=== PATIENT | male | born 1990 | race Caucasian/White ===

== ENCOUNTER 2022-02-15 10:22 | Emergency (ER) | payer OTHER, SELFPAY ==
--- NOTE | ~2022-02-15 | XR_ITS ---
EXAMINATION: XR chest 2V DATE: 02/15/2022 10:46 INDICATION: Cough and fever TECHNIQUE: PA and lateral views of the chest are obtained. COMPARISON: None available FINDINGS: There are minimal airspace opacities of the lower lung zones. No pleural effusion or pneumo thorax. The cardiomediastinal silhouette is normal. There is mild thoracic spondylosis. IMPRESSION: 1. Minimal airspace opacities of the lower lung zones, consistent with atelectasis versus pneumonia. Reviewed, dictated and finalized at location B. IMPRESSION: 1. Minimal airspace opacities of the lower lung zones, consistent with atelecta sis versus pneumonia.
[2022-02-15 10:25] VITALS: BP 135/87; PULSE 118; RESP 18; TEMP 37.1; O2SAT 100
--- NOTE | 2022-02-15 10:25 | ED.URI ---
HPI - URI/Sore Throat General Chief Complaint: Upper Respiratory Infection Stated Complaint: fever,cough Time Seen by Provider: 02/15/22 10:32 Source: patient, RN notes reviewed and old records reviewed Mode of arrival: ambulatory Limitations: no limitations History of Present Illness HPI Narrative: 31-year-old male presents to the [facility] with complaints of fever and cough for the last 2 to 3 days. Patient states that he took Advil just prior to arrival. Reports yesterday he got home from work with 102 fever. Reports taking an at home COVID test which he reports is negative MD elicited complaint: fever and cough Onset (ago): day(s) (2-3 ) Able to tolerate fluids by mouth: Yes Relieving factors: NSAID (for fever) Related Data Allergies Allergy/AdvReac Type Severity Reaction Status Date / Time Penicillins Allergy Mild Rash Verified 02/15/22 10:24 Sulfa (Sulfonamide Allergy Mild Rash Verified 02/15/22 10:24 Antibiotics) Review of Systems Review of Systems: All systems reviewed & are unremarkable except as noted in HPI and below Constitutional: Constitutional: Reports as per HPI, Denies chills and Reports fever(s) Eyes: Eyes: Reports no additional eye complaints ENT: Reports system reviewed and no additional complaints, except as documented Cardiovascular: Cardiovascular: Reports no additional cardiovascular complaints Respiratory: Respiratory: Reports as per HPI and Reports cough Gastrointestinal: Gastrointestinal: Reports no additional gastrointestinal complaints Musculoskeletal: Musculoskeletal: Reports no additional musculoskeletal complaints Integumentary/Breasts: Skin/Breast: Reports system reviewed and no additional complaints, except as docu Neurologic: Reports system reviewed and no additional complaints, except as documented Psychiatric: Psychiatric: Reports no additional psychiatric complaints Allergic/Immunologic: Allergic/Immunologic: Reports no additional allergic/immunologic complaints [facility] Past Medical History Medical History Broken humerus 2007 Peritonsillar abscess 2017 Pilonidal cyst 2014 Sinus problem Surgical History Surgical History History of surgery on arm humerus - 2006 History of total cystectomy Pilaidal cyst - 2013 [place] teeth extracted 2013 Family History Family History Father Diabetes mellitus Hypertension COPD (chronic obstructive pulmonary disease) Mother Hypertension Grandparent Cancer Social History Social History Smoking packs per day: 1 Smoking cigarettes per day: 20.0 Years smoked: 10 Smoking pack-years: 10.00 Smoking status: Current every day smoker Tobacco type: cigarettes Additional smoking assessment comments: 1 pack daily - started 2009 Alcohol intake: current Drinks per week: 1 Alcohol use details: 1 beer consumed weekly Substance use: never Substance use type: does not use 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 There is no relevant family history pertinent to the patient complaint. Exam Const: General: healthy appearing, no acute distress and alert Nutritional Appearance: well nourished Orientation/consciousness: patient oriented x3 Limitations: no limitations HENMT: Head: normal to inspection Ears: external ears normal General nose exam: Normal external nose present Face and sinus: normal facial exam Mouth: Yes Normal oral and palatal mucosa present Eyes: General: appearance normal, both eyes and all related structures Pupils: Equal, round and marley
[2022-02-15 21:31] LABS: SARS-CoV-2 RNA PCR Negative
== END 2022-02-15 11:05 | disposition home or self-care (01) ==
PROVIDERS: Emergency Provider Nurse Practitioner; PCP Family Medicine
DX: J18.9 Pneumonia, unspecified organism (principal); F17.210 Nicotine dependence, cigarettes, uncomplicated; Z20.822 Contact with and (suspected) exposure to COVID-19
CPT/HCPCS: 71046; 87081; 87804; 87880; 99213; C9803; G0463; U0003; U0005

== ENCOUNTER 2024-02-03 18:18 | Emergency (ER) | payer BC, SELFPAY ==
[2024-02-03 18:25] VITALS: BP 149/96; PULSE 110; RESP 16; TEMP 36.5; O2SAT 99
--- NOTE | 2024-02-03 18:32 | ED.GENADULT ---
HPI - General Adult General Chief complaint: Wound/Laceration Stated complaint: wound laceration rt index finger Time Seen by Provider: 02/03/24 18:32 Source: patient Mode of arrival: ambulatory Limitations: no limitations History of Present Illness HPI narrative: 33-year-old male patient presents to the [facility] with complaints of a laceration to the right index finger. Patient states he was working with some wood working tools and lacerated his finger with a sharp areas of the tool. Patient states last tetanus shot was about 2 years ago. Related Data Allergies Allergy/AdvReac Type Severity Reaction Status Date / Time Penicillins AdvReac Mild Rash Verified 02/03/24 18:21 Sulfa (Sulfonamide AdvReac Mild Rash Verified 02/03/24 18:21 Antibiotics) Review of Systems Review of Systems: CONSTITUTIONAL: Denies fever, chills, or sweats. EYES: Denies visual changes, redness, or discharge. ENT: Denies rhinorrhea, congestion, sore throat, or otalgia. CARDIOVASCULAR: Denies chest pain, palpitations, or edema. RESPIRATORY: Denies cough or dyspnea. GASTROINTESTINAL: Denies abdominal pain, nausea, vomiting, or diarrhea. GENITOURINARY: Denies dysuria or hematuria. SKIN: Denies rash or itching. Positive laceration to right ringfinger MUSCULOSKELETAL: Denies back pain, joint pain, or myalgia. NEUROLOGIC: Denies headache, numbness, or weakness. PSYCHIATRIC: Denies anxiety or depression. [facility] Past Medical History Medical History Broken humerus 2007 Peritonsillar abscess 2017 Pilonidal cyst 2014 Sinus problem Surgical History Surgical History History of surgery on arm humerus - 2006 History of total cystectomy Pilaidal cyst - 2014 [place] teeth extracted 2012 Family History Family History Father Diabetes mellitus Hypertension COPD (chronic obstructive pulmonary disease) Mother Hypertension Grandparent Cancer Social History Social History Smoking packs per day: 1 Smoking cigarettes per day: 20.0 Years smoked: 10 Smoking pack-years: 10.00 Smoking status: Current every day smoker Tobacco type: cigarettes Additional smoking assessment comments: 1 pack daily - started 2009 Alcohol intake: current Drinks per week: 1 Alcohol use details: 1 beer consumed weekly Substance use: never Substance use type: does not use Living arrangements: with family Occupation/Education: occupation 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 There is no relevant family history pertinent to the presenting complaint. Exam Narrative: GENERAL: Well-appearing, well-nourished, and in no acute distress. HEAD: Normocephalic, atraumatic. EYES: PERRLA and EOMI. ENT: Nares clear, no rhinorrhea or epistaxis. Mucous membranes moist. NECK: Supple. No lymphadenopathy CHEST: Clear to auscultation. No respiratory distress. HEART: Regular rate and rhythm. No murmur heard. Normal peripheral pulses. ABDOMEN: Soft, nontender, nondistended, normal active bowel sounds. EXTREMITIES: Normal range of motion. No edema. SKIN: Warm, dry, no rash. patient has proximally 2 cm laceration noted to the palm side of the 4th digit between PIP and PIP joint. Laceration is slightly gaping but no fat exposed NEURO: No focal deficits. Alert and oriented x3. Course Course Level of Care: Express Care Visit Vital Signs Vital signs: Vital Signs Temperature 36.5 C 02/03/24 18:25 Pulse Rate 110 H 02/03/24 18:25 Respiratory Rate 16 02/03/24 18:25 Blood Pressure 149/96 H 01/12
== END 2024-02-03 19:06 | disposition home or self-care (01) ==
PROVIDERS: Emergency Provider Nurse Practitioner Family; PCP Family Medicine
DX: S61.210A Laceration without foreign body of right index finger without damage to nail, initial encounter (principal); W45.8XXA Other foreign body or object entering through skin, initial encounter; F17.210 Nicotine dependence, cigarettes, uncomplicated
CPT/HCPCS: 12001; 99213; G0463

== ENCOUNTER 2024-08-25 08:40 | Emergency (ER) | payer BC, SELFPAY ==
--- NOTE | ~2024-08-25 | XR_ITS ---
EXAMINATION: XR chest 2V 08/25/2024 09:22 INDICATION: Productive cough PROCEDURE: 2 view chest COMPARISON: 02/15/2022 FINDINGS: The lungs are clear. The cardiomediastinal silhouette is within normal limits. There are no pleural effusions. There is no pneumothorax suspected. IMPRESSION: 1: NO ACUTE CARDIOPULMONARY DISEASE. Reviewed, dictated and finalized at location A. 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
--- NOTE | 2024-08-25 08:47 | ED.URI ---
HPI - URI/Sore Throat General Chief Complaint: Upper Respiratory Infection Stated Complaint: flu symptoms Time Seen by Provider: 08/25/24 08:48 Source: patient, RN notes reviewed and old records reviewed Mode of arrival: ambulatory Limitations: no limitations History of Present Illness HPI Narrative: patient presents with complaints of flu-like symptoms for 3 days. He reports that many of his family members have recently tested positive for influenza A. Patient states that he is here today to make sure that nothing worse is going on because he feels as though he is sicker than his and children were. He does have a history of pneumonia, states he is concerned about this. He has been taking [id number] medication for his symptoms with poor relief. Related Data Home Medications ?Medication ?Instructions ?Recorded ?Confirmed ?Last Taken ?Type No Home Medications 08/25/24 08/25/24 Unknown History Allergies Allergy/AdvReac Type Severity Reaction Status Date / Time Penicillins Allergy Mild Rash Verified 08/25/24 09:05 Sulfa (Sulfonamide Allergy Mild Rash Verified 08/25/24 09:05 Antibiotics) Review of Systems Review of Systems: All systems reviewed & are unremarkable except as noted in HPI and below Constitutional: Constitutional: Reports no additional constitutional complaints, Reports body ache(s), Reports chills, Reports fever(s), Reports headache(s) and Reports lethargy ENT: Reports system reviewed and no additional complaints, except as documented, Reports nasal congestion and Reports nasal discharge Cardiovascular: Cardiovascular: Reports no additional cardiovascular complaints Respiratory: Respiratory: Reports no additional respiratory complaints and Reports cough Gastrointestinal: Gastrointestinal: Reports no additional gastrointestinal complaints PMFSH Past Medical History Medical History Sinus problem Broken humerus 2006 Pilonidal cyst 2014 Peritonsillar abscess 2017 Surgical History Surgical History History of surgery on arm humerus - 2006 History of total cystectomy Pilaidal cyst - 2013 [place] teeth extracted 2013 Family History Family History Father Diabetes mellitus Hypertension COPD (chronic obstructive pulmonary disease) Mother Hypertension Grandparent Cancer Social History Social History Smoking packs per day: 1 Smoking cigarettes per day: 20.0 Years smoked: 10 Smoking pack-years: 10.00 Smoking status: Current every day smoker Tobacco type: cigarettes Additional smoking assessment comments: 1 pack daily - started 2009 Alcohol intake: current Drinks per week: 1 Alcohol use details: 1 beer consumed weekly Substance use: never Substance use type: does not use Living arrangements: with family Occupation/Education: occupation 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 There is no relevant family history pertinent to the patient complaint. Exam Const: General: cooperative, no acute distress, alert, awake and uncomfortable Orientation/consciousness: oriented to person, oriented to place and oriented to time HENMT: Head: normal to inspection Ears: TM's normal bilaterally Mouth: Yes moist mucous membranes Throat: posterior oropharynx abnormal erythema and postnasal drainage Resp: Effort & Inspection: normal respiratory effort and able to speak in complete sentences Auscultation: clear to auscultation bilaterally, no crackles, no rales, no rhonchi and no wheezes Cardio: Palpation: normal PMI Rate: regular rate Rhythm: regular rhythm Heart sounds: S1 normal heart sound present and S2 normal heart sound present Neuro: General: oriented to person, oriented to place and oriented to time Cranial nerves: Yes CN's II-XII intact bilaterally Psych: Appearance: grossly normal Thought process: Normal thought process present Insight: Good insight present (Psych) Judgement: Good judgement present (Psych) Course Course Level of Care: Express Care Visit Vital Signs Vital signs: Reviewed MDM - URI/Sore Throat MDM Narrative Medical decision making narrative: Positive flu a, negative chest x-ray. Patient is nontoxic appearing, heart rate 110 on auscultation. He is advised to treat his symptoms with [id number] medications per package instructions. Rest, fluids. Discharge instructions reviewed with patient, as well as provided in writing per nursing staff. The instructions also include specific and strict return/GO TO THE ER as well as f/u information. All questions have been answered, and the patient deny any further questions with discharge and discharge plan. Some parts of this dictation were generated by voice recognition software and may contain typographical and/or grammatical inaccuracies. Differential Diagnosis Differential diagnosis: Likely upper respiratory infection, otitis media, sinusitis, viral infection, bronchitis, influenza and pharyngitis Medical Records Attestation: I reviewed the patient's medical records. Lab Data Attestation: I reviewed the patient's lab results. Imaging Data Attestation: I personally reviewed and interpreted this imaging study as follows: My impression: no acute finding Radiologist's impression: [address] [address] XRay Report Signed Patient: Mallory Anderson : 1990 MR#: [id number] Age: 34 Acct:[id number] Loc: [facility] ADM Date: 08/25/24Attending Dr: Ordering Physician: Gena Malin FNP Date of Service: 08/25/24 Procedure(s): XR chest 2V Accession Number(s): [id number] cc: Gena Malin FNP; Troy Fay MD~ EXAMINATION: XR chest 2V 08/25/2024 09:22 INDICATION: Productive cough PROCEDURE: 2 view chest COMPARISON: 02/15/2022 FINDINGS: The lungs are clear. The cardiomediastinal silhouette is within normal limits. There are no pleural effusions. There is no pneumothorax suspected. IMPRESSION: 1: NO ACUTE CARDIOPULMONARY DISEASE. Reviewed, dictated and finalized at location A. 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 It is intended for [id number] communication. It is written in medical language and may contain unfamiliar abbreviations or verbiage. Medical documents are intended to carry relevant information, facts as evident, and the clinical opinion of the practitioner at the time of the encounter. This report may have been done utilizing a voice recognition system. Attempts have been made to correct errors. However, there may be uncorrected grammatical, spelling, and recognition errors present. The file time of this note does not necessarily represent the time the patient was seen. Dictated By: Celso Ge MD 08/25/2434 Signed By: <Electronically signed by Celso Ge MD in OV> 08/25/24933 Discharge Plan Discharge Clinical Impression: Influenza A Patient Disposition: Home, Self-Care Condition: Stable Instructions: Antibiotic Form, Influenza (ED) Additional Instructions: Tylenol and/or ibuprofen per package instructions as needed for fever and pain. Follow-up with primary care provider. Emergency department for new or worse Patient Language: [place] Prescriptions: No Action No Home Medications Follow-up/Referrals: Lucía Fay MD [Primary Care Provider] - 2 Weeks Stand Alone Forms: Work/School Release IP Time of Disposition: 09:53
[2024-08-25 08:52] VITALS: BP 145/83; PULSE 128; RESP 18; TEMP 37.4; O2SAT 96
[2024-08-25 09:29] LABS: EDCOVIDSCREEN Negative (Negative); EDINFLUASCREEN Positive (Negative); EDINFLUBSCREEN Negative (Negative)
== END 2024-08-25 09:57 | disposition home or self-care (01) ==
PROVIDERS: Emergency Provider Nurse Practitioner Family; PCP Family Medicine
DX: J10.1 Influenza due to other identified influenza virus with other respiratory manifestations (principal); F17.210 Nicotine dependence, cigarettes, uncomplicated; Z20.822 Contact with and (suspected) exposure to COVID-19
CPT/HCPCS: 71046; 87426; 87804; 99213; G0463

== ENCOUNTER 2025-07-10 15:03 | Emergency (ER) | payer BC, SELFPAY ==
[2025-07-10] VITALS (24 sets, daily range): BP systolic 145–178; BP diastolic 90–109; PULSE 98–130; RESP 11–33; TEMP 36.8; O2SAT 94–100
--- NOTE | ~2025-07-10 | XR_ITS ---
EXAMINATION: XR chest 2V 07/10/2025 16:12 INDICATION: Elevated heart rate PROCEDURE: 2 view chest COMPARISON: Comparison to multiple prior studies sequentially, with oldest reviewed study dated 02/15/2022. FINDINGS: The lungs are clear. The cardiomediastinal silhouette is within normal limits. There are no pleural effusions. There is no pneumothorax suspected. IMPRESSION: 1: NO ACUTE CARDIOPULMONARY DISEASE. Reviewed, dictated and finalized at location I. RALIST
--- NOTE | ~2025-07-10 | CT_ITS ---
EXAMINATION: CTA chest PE protocol DATE: 07/10/2025 17:44 INDICATION: Tachycardia. Chest pain. TECHNIQUE: Computed tomography angiography (CTA) of the chest was performed with 100 mL Omnipaque-350 intravenous contrast timed to evaluate the pulmonary arteries. Coronal maximum intensity projection 3D-reconstructions were created by the technologist. Automated exposure control and iterative reconstruction technique were employed. The dose-length product was 624.89 mGy-cm. COMPARISON: Chest x-ray dated 07/10/2025. FINDINGS: The lungs do not show acute findings. The pulmonary arteries do not show evidence of emboli. No lymphadenopathy or an. The thoracic aorta shows no acute findings. IMPRESSION: 1. Reviewed, dictated and finalized at location T. ICAL MASSAGE THERAPIST IMPRESSION: 1.
--- NOTE | 2025-07-10 15:43 | ECG_ITS ---
Test Date: 2025-07-10 17:40:14 Measurements Intervals [place] Rate: 105 P: 38 NE: 174 QRS: 8 QRSD: 94 T: 20 QT: 326 QTc: 432 Interpretive Statements SINUS TACHYCARDIA ABNORMAL RHYTHM ECG No previous ECG available for comparison Electronically Signed On 07-11-2025 08:04:50 PREDATOR CONTROL TRAPPER by Steven Ivory M.D.
--- NOTE | 2025-07-10 15:54 | ED_ITS ---
HPI - Recheck/Abnormal Lab/Rx General Chief Complaint: Recheck/Abnormal Lab/Rx Stated Complaint: htn Time Seen by Provider: 07/10/25 15:13 History of Present Illness HPI narrative: Patient is a 34-year-old male who presents to the ER with concerns for high blood pressure and high heart rate. He reported his father in a approximately 2 months ago and he started having anxiety attacks. Patient reports he has had intermittent symptoms for the past 2 months and was seen at [facility] earlier this week for similar symptoms. He reports his primary care provider started him on metoprolol 25 mg for blood pressure control. Patient reports this morning he started experiencing pain in the back of his head so he took his blood pressure and it was elevated into the 160s over 110s. He reports he called his primary care provider who advised him to take another dose of metoprolol. Patient reports his blood pressure has remained elevated. He endorses a history of high blood pressure and anxiety but denies any other medical history relevant to this ER visit. Patient denies any recent alcohol or illicit drug use. He reports he has decreased his caffeine intake recently and increased his water intake. He denies any shortness of breath, recent fevers, or chest pain. Related Data Allergies Allergy/AdvReac Type Severity Reaction Status Date / Time Penicillins Allergy Mild Rash Verified 07/10/25 15:06 Sulfa (Sulfonamide Allergy Mild Rash Verified 07/10/25 15:06 Antibiotics) Review of Systems 2 Review of Systems: All systems reviewed & are unremarkable except as noted in HPI and below PMFSH Past Medical History Medical History Essential (primary) hypertension Dyslipidemia Sinus problem Broken humerus 2006 Pilonidal cyst 2014 Peritonsillar abscess 2017 Surgical History Surgical History History of surgery on arm humerus - 2006 History of total cystectomy Pilaidal cyst - 2013 [place] teeth extracted 2012 Family History Family History Father Diabetes mellitus Hypertension COPD (chronic obstructive pulmonary disease) Mother Hypertension Grandparent Cancer Social History Social History Smoking packs per day: 1 Smoking cigarettes per day: 20.0 Years smoked: 12 Smoking pack-years: 12.00 Smoking status: Current every day smoker Tobacco type: cigarettes Additional smoking assessment comments: 1 pack daily - started 2009 Alcohol intake: current Drinks per week: 1 Alcohol use details: 1 beer consumed weekly Substance use: never Substance use type: does not use Living arrangements: with family Occupation/Education: occupation Additional occupation/education comments: [employer], [employer] Gender identity (if verbalized by the patient): Male Exam 2 Narrative: GENERAL: Well appearing, well-nourished, non-toxic, in no acute distress. HEAD: Normocephalic, atraumatic. NECK: Supple. No adenopathy, no masses. RESPIRATORY: Airway patent, respirations nonlabored. Clear to auscultation bilaterally, no rales, rhonchi, wheezing. CARDIOVASCULAR: Tachycardia without murmurs, rubs, or gallops. Peripheral pulses 2+ and equal bilaterally. ABDOMINAL: Soft, nontender, nondistended, no hepatosplenomegaly. Normoactive BS. MUSCULOSKELETAL: Moves all extremities. Strength/ROM intact without gross deformities. SKIN: Warm, dry, normal color. No rashes. NEURO: A&O X3. Speech clear. Cranial nerves II-XII intact. No ataxic movements. PSYCHIATRIC: Appropriate mood and affect. Anxious Course Vital Signs Vital signs: Vital Signs Temperature 36.8 C 07/10/25 15:11 Pulse Rate 125 H 07/10/25 15:11 Respiratory Rate 20 07/10/25 15:11 Blood Pressure 178/96 H 07/10/25 15:11 Oxygen Delivery Room Air 07/10/25 15:11 Temperature 36.8 C 07/10/25 15:11 Pulse Rate 101 H 07/10/25 18:34 Respiratory Rate 19 07/10/25 18:34 Blood Pressure 161/92 H 07/10/25 18:34 Pulse Oximetry 98 07/10/25 18:34 Oxygen Delivery Room Air 07/10/25 15:11 MDM - Recheck/Abnormal Lab/Rx MDM Narrative Medical decision making narrative: Patient is a 34-year-old male who presents to the ER with concerns for high blood pressure and high heart rate. He reported his father in a approximately 2 months ago and he started having anxiety attacks. Patient reports he has had intermittent symptoms for the past 2 months and was seen at [facility] earlier this week for similar symptoms. He reports his primary care provider started him on metoprolol 25 mg for blood pressure control. Patient reports this morning he started experiencing pain in the back of his head so he took his blood pressure and it was elevated into the 160s over 110s. He reports he called his primary care provider who advised him to take another dose of metoprolol. Patient reports his blood pressure has remained elevated. He endorses a history of high blood pressure and anxiety but denies any other medical history relevant to this ER visit. Patient denies any recent alcohol or illicit drug use. He reports he has decreased his caffeine intake recently and increased his water intake. He denies any shortness of breath, recent fevers, or chest pain. Labs Ordered: CBC, CMP, D-dimer, magnesium, PTT, INR, troponin, A1c, TSH, COVID/flu/RSV, UA, UDS Imaging Ordered: CTA chest PE, chest x-ray Medications Ordered: 1 L normal saline IV bolus, Ativan 1 mg p.o. Results: Pt's CTA indicates he lungs do not show acute findings. The pulmonary arteries do not show evidence of emboli. No lymphadenopathy or an. The thoracic aorta shows no acute findings. Diagnosis: tachycardia, mild dehydration, anxiety Risks: HEART score: low risk HEART Score for Major Cardiac Events from [email or web address] on 07/10/2025 All calculations should be rechecked by clinician prior to use RESULT SUMMARY: 2 points Low Score (0-3 points) Risk of MACE of 0.9-1.7%. INPUTS: History ?> 1 = Moderately suspicious EKG ?> 0 = Normal Age ?> 0 = <45 Risk factors ?> 1 = 1-2 risk factors Initial troponin ?> 0 = <Normal limit Consults: cardiology Patient Education/Shared MDM: Results of lab work and imaging shared with patient. He endorses improvement of symptoms following Ativan medication administration. Patient strongly advised to maintain hydration status upon discharge and follow-up with his PCP as soon as possible for further evaluation and treatment. He will be discharged home with a prescription for Hydroxyzine and Ativan. Pt was advised to try Hydroxyzine first, but if that doesn't help relieve his anxiety then he may take Ativan. He was also advised to only take his BP one time/day. Pt should continue to take the BP medication he was prescribed by his PCP. Strict return precautions provided. Patient verbalized understanding and is in agreement with plan. Vital signs stable at time of discharge. All questions answered. Differential Diagnosis Differential diagnosis: Likely other (SVT, atypical chest pain, anxiety, abnormal thyroid levels, PE) Lab Data Attestation: I reviewed the patient's lab results. 07/10/25 16:02 07/10/25 16:02 Labs: Lab Results 07/10/25 Range/Units 16:02 WBC 10.9 H (4.5-10.0) K/mm3 RBC 5.27 (4.6-6.20) M/mm3 Hgb 16.2 (14.0-18.0) g/dL Hct 46.6 (42.0-52.0) % MCV 88.4 (80-100) fl MCH 30.7 (26-34) pg MCHC 34.8 (32-36) g/dl RDW 12.6 (11.5-14.5) % Plt Count 342 (150-375) k/mm3 MPV 9.3 (7.4-10.4) fl Immature Gran % (Auto) 1.0 H (0-0.5) % Neut % (Auto) 62.0 (45.5-73.1) % Lymph % (Auto) 29.3 (18.3-44.2) % [place] % (Auto) 5.7 (2.6-8.5) % Eos % (Auto) 1.4 (0-4.4) % Baso % (Auto) 0.6 (0.2-1.2) % Lymph # (Auto) 3.19 (0.9-3.2) K/mm3 [place] # (Auto) 0.6 (0.1-0.6) K/mm3 Eos # (Auto) 0.2 (0-0.3) K/mm3 Baso # (Auto) 0.1 (0.0-0.1) K/mm3 Abs Immat Gran (auto) 0.11 H (0.00-0.031) K/mm3 Absolute Neuts (auto) 6.7 (1.3-6.7) K/mm3 Absolute Nucleated RBC 0.000 (0.0-0.012) K/mm3 Nucleated RBC % 0.0 (0.0-0.2) % PT 13.2 (11.1-14.7) Seconds INR 1.0 APTT 28.7 (22.3-36.8) Seconds D-Dimer < 0.27 (<0.48) ug/mL Sodium 138 (137-145) mmol/L Potassium 3.9 (3.4-5.0) mmol/L Chloride 105 (98-107) mmol/L Carbon Dioxide 25 (22-30) mmol/L Anion Gap 8 (4-12) mmol/L BUN 8 L (9-20) mg/dL Creatinine 0.69 L (0.7-1.3) mg/dL Estim Creat Clear Calc 144 ml/min Estimated GFR > 60 (59 - ) Glucose 190 H (65-110) mg/dL Hemoglobin A1c 5.7 (<5.7) % Calcium 10.0 (8.4-10.2) mg/dL Magnesium 2.1 (1.6-2.3) mg/dL Total Bilirubin 1.0 (0.2-1.3) mg/dL AST 37 (17-59) U/L ALT 100 H (6-50) U/L Alkaline Phosphatase 78 (38-126) U/L Troponin I < 0.012 (0.000-0.034) ng/mL NT-Pro-B Natriuret Pep < 20 (19.9-100) pg/mL Total Protein 7.8 (6.3-8.2) g/dL Albumin 4.8 (3.5-5.1) g/dL TSH (Reflex) 0.952 (0.465-4.68) uIU/mL Urine Color Yellow (Yellow) Urine Appearance Clear (Clear) Urine pH 6.0 (5.0-9.0) Ur Specific [place] 1.008 (1.001-1.035) Urine Protein Negative (Negative) mg/dL Urine Glucose (UA) Negative (Negative) mg/dL Urine Ketones Negative (Negative) mg/dL Ur Blood (Man) Negative (Negative) Urine Nitrate Negative (Negative) Urine Bilirubin Negative (Negative) Urine Urobilinogen 0.2 (<2.0) mg/dL Leukocyte Esterase Rfl Negative (Negative) ANGY/UL Urine Opiates Screen Negative (Negative) Urine Methadone Screen Negative (Negative) Ur Barbiturates Screen Negative (Negative) Ur Phencyclidine Scrn Negative (Negative) Ur Amphetamine Screen Negative (Negative) U Benzodiazepines Scrn Negative (Negative) Urine Cocaine Screen Negative (Negative) U Cannabinoids Screen Negative (Negative) Influenza A (RT-PCR) Negative (Negative) Influenza B (RT-PCR) Negative (Negative) RSV (RT-PCR) Negative (Negative) SARS-CoV-2 RNA (RT-PCR) Negative (Negative) Imaging Data Attestation: I personally reviewed and interpreted this imaging study as follows: Radiologist's impression: Impressions Chest X-Ray 07/10/25 16:14 IMPRESSION: 1: NO ACUTE CARDIOPULMONARY DISEASE. Chest CTA 07/10/25 17:48 IMPRESSION: 1. Discharge Plan Discharge Clinical Impression: Elevated blood pressure reading, Tachycardia, Anxiety, Dehydration, mild Patient Disposition: Home Condition: Stable Instructions: Antibiotic Form, Anxiety (ED) Additional Instructions: Please return to the ER with any worsening symptoms. Follow-up with primary care provider as soon as possible for further evaluation and treatment. Take all medications as prescribed, including regularly scheduled medications. You may take hydroxyzine as needed for anxiety. If that does not help relieve your symptoms in you may take Ativan. Please remember to drink lots of water to stay hydrated. Patient Language: Pashto Prescriptions: New hydroxyzine HCl 25 mg tablet 25 mg PO TID PRN (Reason: anxiety) Qty: 20 0RF lorazepam [Ativan] 1 mg tablet 1 mg PO TID PRN (Reason: anxiety) Qty: 10 0RF No Action bupropion HCl (smoking deter) 150 mg tablet extended release 12 hr 150 mg PO BID Qty: 180 1RF metoprolol succinate 25 mg tablet extended release 24 hr 25 mg PO DAILY Qty: 90 1RF Follow-up/Referrals: Francheska Garcia APRN [Primary Care Provider, [facility]] Time of Disposition: 19:30
[2025-07-10 16:33] LABS: Hematocrit 46.6 % (42.0-52.0); Hemoglobin 16.2 g/dL (14.0-18.0); Immature Granulocyte Percent A 1.0 % (0-0.5); Lymphocytes Absolute Auto 3.19 K/mm3 (0.9-3.2); Mean Corpuscular HGB Conc 34.8 g/dl (32-36); Mean Corpuscular Hemoglobin 30.7 pg (26-34); Mean Corpuscular Volume 88.4 fl (80-100); Nucleated Red Blood Cells Absolute Auto 0.000 K/mm3 (0.0-0.012); Nucleated Red Blood Cells Perc 0.0 % (0.0-0.2); Platelet Count Result 342 k/mm3 (150-375); Red Blood Count 5.27 M/mm3 (4.6-6.20); White Blood Count 10.9 K/mm3 (4.5-10.0)
[2025-07-10 16:34] LABS: Add Urine Microscopic? NO; Appearance Urine Clear (Clear); Glucose Urine UA Negative (Negative); Leukocyte Esterase Ur Negative LEU/UL (Negative); Nitrate Urine Negative (Negative); Specific Grav Ur 1.008 (1.001-1.035)
[2025-07-10] MEDS: LORazepam (*CRX) 1 MG TABLET PO (16:40)
[2025-07-10] MEDS: SODIUM CHLORIDE 0.9% IV 1,000 ML 999 ML IV CONT (16:40)
[2025-07-10 16:44] LABS: INR 1.0; Prothrombin Time 13.2 Seconds (11.1-14.7)
[2025-07-10 16:45] LABS: Alanine Aminotransferase 100 U/L (6-50); Albumin Level 4.8 g/dL (3.5-5.1); Alkaline Phosphatase 78 U/L (38-126); Anion Gap 8 mmol/L (4-12); Aspartate Amino Transferase 37 U/L (17-59); Bilirubin,Total 1.0 mg/dL (0.2-1.3); Blood Urea Nitrogen 8 mg/dL (9-20); Calcium 10.0 mg/dL (8.4-10.2); Carbon Dioxide 25 mmol/L (22-30); Chloride 105 mmol/L (98-107); Estimated CRCL calculation 144 ml/min; Estimated Glomerular Filt Rate > 60; Glucose 190 mg/dL (65-110); Magnesium 2.1 mg/dL (1.6-2.3); Partial Thromboplastin Time 28.7 Seconds (22.3-36.8); Potassium 3.9 mmol/L (3.4-5.0); Sodium 138 mmol/L (137-145); Total Protein 7.8 g/dL (6.3-8.2)
[2025-07-10 16:53] LABS: Cannabinoid Screen Urine Negative (Negative)
[2025-07-10 16:56] LABS: NT Pro B Type Natriuretic Pept < 20 pg/mL (19.9-100); Troponin I < 0.012 ng/mL (0.000-0.034)
[2025-07-10 17:08] LABS: Influenza A QL RT-PCR Negative (Negative); Influenza B QL RT-PCR Negative (Negative); RSV RNA, RT-PCR Negative (Negative); SARS-CoV-2 RNA PCR Negative (Negative)
[2025-07-10 17:30] LABS: Hemoglobin A1C 5.7 % (<5.7)
[2025-07-10 18:00] LABS: Thyroid Stimulating Hormone Reflex 0.952 uIU/mL (0.465-4.68)
== END 2025-07-10 19:41 | disposition home or self-care (01) ==
PROVIDERS: Emergency Provider Registered Nurse; PCP Nurse Practitioner Family
DX: I10 Essential (primary) hypertension (principal); R00.0 Tachycardia, unspecified; E86.0 Dehydration; F41.9 Anxiety disorder, unspecified; Z11.52 Encounter for screening for COVID-19; E78.5 Hyperlipidemia, unspecified; F17.210 Nicotine dependence, cigarettes, uncomplicated; Z79.899 Other long term (current) drug therapy
CPT/HCPCS: 36415; 71046; 71275; 80053; 80307; 81003; 83036; 83735; 83880; 84443; 84484; 85025; 85380; 85610; 85730; 87637; 93005; 96360; 99284; A9270; J7030; Q9967